=== PATIENT | male | born 1940 | race Two or more races ===

== ENCOUNTER 2024-09-22 14:38 | Outpatient (AMB) | payer MEDICARE, MEDICAID, SELFPAY ==
[2024-09-22 14:50] VITALS: BP 145/80; PULSE 106; RESP 18; TEMP 36.4; O2SAT 93; BMI 27.4
--- NOTE | 2024-09-22 14:50 | GSCOFFNT_ITS ---
[facility]ital Signs - [facility] 09/22/24 14:50 Height 1.7 m Height Method Measured Weight 79.492 kg Weight Measurement Method Standing Scale BMI 27.4 BP 145/80 H Blood Pressure Source Automatic Cuff Blood Pressure Location Right Upper Arm Position Sitting Respiration 18 Pulse 106 H Pulse Source Monitor Temp 97.5 F Temp Source Temporal Artery Scan Pulse Oximetry (%) 93 L Oxygen Delivery Method Room Air Med/Allergies Allergies & Medications Allergies No Known Allergies Allergy (Verified 09/22/24 14:51) Medication Reconciliation hydrochlorothiazide 25 mg tablet 25 mg PO QDAY 03/09/18 [History Confirmed 09/22/24] omeprazole 40 mg capsule,delayed release 40 mg PO QDAY 03/09/18 [History Confirmed 09/22/24] amlodipine 10 mg tablet 10 mg PO QDAY 09/22/24 [History Confirmed 09/22/24] glipizide 5 mg tablet 5 mg PO QDAY 09/22/24 [History Confirmed 09/22/24] metformin 850 mg tablet 850 mg PO BID 09/22/24 [History Confirmed 09/22/24] montelukast 10 mg tablet 10 mg PO QDAY 09/22/24 [History Confirmed 09/22/24] MA Intake Visit Data Collection New Patient or Established: New Patient not seen in past 3 years at [facility] (considered New) Seen by Clinical Staff ONLY (RN/MA): No Reason for Visit:: POSITIVE FOBT Pain Present Currently: Yes Pain Location: Unable to identify Pain scale:: 3 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[employer] 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: Yes PCP or OBGYN visit in last 3 months: Yes Hx Now: No Do You Feel Safe at Home: Yes Authorities Contacted: N/A Smoking Status Smoking Status: Never smoker Immunization / Flu Flu Vaccine in the Last 12 Months: No Flu Vaccine Exclusion Criteria: No Exclusion Criteria Past Medical History Past Medical History NEUROLOGIC: Negative Seizures CARDIAC: Positive Hypercholesterolemia and Hypertension; Negative Congestive Heart Failure RESPIRATORY: Positive Asthma; Negative Chronic Obstructive Pulmonary Disease (COPD), Smoking, Smoking Cessation Counseling, Smoking Exposure or Tobacco Use GASTROINTESTINAL: Positive Gastroesophageal Reflux Disease GENITOURINARY: Negative Renal Disease ENDOCRINE: Positive Diabetes Mellitus Type 2; Negative Diabetes Mellitus Type 1 OTHER HISTORY: Negative Blood Transfusions, Blood Transfusion Reaction or Anesthesia Reactions Social History SMOKING STATUS: Smoking status: Never smoker HOUSING: Housing: House Travel Risk Travel Hx Recent Travel: No HPI HPI Narrative 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 Pt reports he takes FOBTs regularly due to his history of polyps and was advised that his recent test was positive. He states he has occasional constipation but otherwise no change in stool caliber, no blood in stool, no anorexia and unintentional weight loss. He had a colonoscopy here in 2018 showing internal hemorrhoids, and believes he had one 2-3 years ago in [place] which showed polyps PMH: HTN, DM, asthma PSHx: Hernia repair Meds: No antiplt or anticoagulation Allergies: NKDA Family hx: No known malignancy ROS Review of Systems Systems Reviewed: All systems reviewed, normal except as documented Objective/Exam General General Appearance: alert, cooperative and well groomed Resp Respiratory exam: Absent respiratory distress Assessment & Plan Diagnosis / Problem List (1) Encounter for colonoscopy due to history of adenomatous colonic polyps: Status: Acute Assessment & Plan: 84M with reported history of polyps presenting with +FOBT. I explained benefits/risks of colonoscopy including bleeding, perforation and/or the need to abort prematurely for safety. All questions were answered and pt is agreeable to proceeding Advanced Care Planning Advance care planning discussed with:: other Patient Portal Questionaires Social History Living Situation History Housing: House Tobacco History Smoking Status: Never smoker Domestic Abuse History Do You Feel Safe at Home: Yes Review of Systems Report any current symptoms Only answer those that you have currently: Past Medical History Past Medical History Have you ever been diagnosed with any of the following: Neurological Problems Seizures: No Cardiology Problems Hypercholesterolemia: Yes Congestive Heart Failure: No Hypertension: Yes Respiratory Problems Chronic Obstructive Pulmonary Disease (COPD): No Asthma: Yes Smoking: No Smoking Cessation Counseling: No Smoking Exposure: No Tobacco Use: No Stomache/Intestinal Problems Gastroesophageal Reflux Disease: Yes Genital/Urinary Problems Renal Disease: No Endocrine Problems Diabetes Mellitus Type 1: No Diabetes Mellitus Type 2: Yes Other Problems Blood Transfusions: No Blood Transfusion Reaction: No Anesthesia Reactions: No Surgical History Additional Surgical History: HERNIA SX BILATERAL ANKLE SX
== END 2024-09-22 15:16 | disposition home or self-care (01) ==
PROVIDERS: PCP Family Medicine; Referring Provider Family Medicine; Supervising Provider Surgery; Visit Provider Surgery
DX: Z12.11 Encounter for screening for malignant neoplasm of colon (principal); Z86.0101 Personal history of adenomatous and serrated colon polyps
CPT/HCPCS: 99213; G0463

== ENCOUNTER 2024-11-08 07:55 | Day surgery (SDC) | payer MEDICARE, MEDICAID, SELFPAY ==
[2024-11-07 10:23] VITALS: BMI 27.4
[2024-11-08] VITALS (16 sets, daily range): BP systolic 96–132; BP diastolic 61–81; PULSE 70–102; RESP 12–26; TEMP 36.4–36.7; O2SAT 92–99; BMI 26.9
[2024-11-08] MEDS: DiphenhydrAMINE INJ 50 MG/ML VIAL 25 MG IV (09:28)
[2024-11-08] MEDS: MIDAZOLAM INJ 1 MG/ML VIAL 2 ML (ASD USE ONLY) 2 MG IV (09:28)
[2024-11-08] MEDS: RINGERS LACTATED 1000 ML 1,000 ML 100 ML IV (09:28)
[2024-11-08] MEDS: fentaNYL CIT INJ 50 mCg/ML AMP 2ML (ASD USE ONLY) IV (09:33)
== END 2024-11-08 11:05 | disposition home or self-care (01) ==
PROVIDERS: PCP Family Medicine; Referring Provider Surgery; Visit Provider Surgery
PROC: 0DBE8ZX Excision of Large Intestine, Via Natural or Artificial Opening Endoscopic, Diagnostic (ICD-10-PCS; CPT 45380; principal; 2024-11-08 10:45)
DX: Z12.11 Encounter for screening for malignant neoplasm of colon (principal); Z86.0100 Personal history of colon polyps, unspecified; D12.3 Benign neoplasm of transverse colon; D12.4 Benign neoplasm of descending colon; D12.5 Benign neoplasm of sigmoid colon; K64.8 Other hemorrhoids; I10 Essential (primary) hypertension; E11.9 Type 2 diabetes mellitus without complications; J45.909 Unspecified asthma, uncomplicated; E78.00 Pure hypercholesterolemia, unspecified; K21.9 Gastro-esophageal reflux disease without esophagitis; K64.4 Residual hemorrhoidal skin tags
CPT/HCPCS: 45385; 45380; J1200; J2250; J3010; J7120

== ENCOUNTER 2024-11-24 09:11 | Outpatient (AMB) | payer MEDICARE, MEDICAID, SELFPAY ==
--- NOTE | 2024-11-24 09:27 | GSCOFFNT_ITS ---
Vital Signs - [facility] 11/24/24 09:29 Height 1.63 m Height Method Stated Weight 72.348 kg Weight Measurement Method Standing Scale BMI 27.2 BP 118/74 Blood Pressure Source Automatic Cuff Blood Pressure Location Left Upper Arm Position Sitting Respiration 19 Pulse 89 Pulse Source Monitor Temp 98.0 F Temp Source Temporal Artery Scan Pulse Oximetry (%) 92 L Oxygen Delivery Method Room Air Med/Allergies Allergies & Medications Allergies No Known Allergies Allergy (Verified 11/24/24 09:29) Medication Reconciliation hydrochlorothiazide 25 mg tablet 25 mg PO QDAY 03/09/18 [History Confirmed 11/24/24] omeprazole 40 mg capsule,delayed release 40 mg PO QDAY 03/09/18 [History Confirmed 11/24/24] amlodipine 10 mg tablet 10 mg PO QDAY 09/22/24 [History Confirmed 11/24/24] glipizide 5 mg tablet 5 mg PO QDAY 09/22/24 [History Confirmed 11/24/24] metformin 850 mg tablet 850 mg PO BID 09/22/24 [History Confirmed 11/24/24] montelukast 10 mg tablet 10 mg PO QDAY 09/22/24 [History Confirmed 11/24/24] losartan 25 mg tablet 25 mg PO QDAY 11/08/24 [History Confirmed 11/24/24] MA Intake Visit Data Collection New Patient or Established: Established Patient (seen at [facility] within 3 years) Seen by Clinical Staff ONLY (RN/MA): No Reason for Visit:: COLONOSCOPY F/U Pain Present Currently: No 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 PCP or OBGYN visit in last 3 months: Yes Hx Now: No Do You Feel Safe at Home: Yes Authorities Contacted: N/A Smoking Status Smoking Status: Never smoker Immunization / Flu Flu Vaccine in the Last 12 Months: No Flu Vaccine Exclusion Criteria: No Exclusion Criteria Past Medical History Past Medical History NEUROLOGIC: Negative Seizures CARDIAC: Positive Cardiac Disorders, Hypercholesterolemia and Hypertension; Negative Congestive Heart Failure RESPIRATORY: Positive Asthma; Negative Chronic Obstructive Pulmonary Disease (COPD), Smoking, Smoking Cessation Counseling, Smoking Exposure or Tobacco Use GASTROINTESTINAL: Positive Gastroesophageal Reflux Disease GENITOURINARY: Negative Renal Disease ENDOCRINE: Positive Diabetes Mellitus Type 2; Negative Diabetes Mellitus Type 1 OTHER HISTORY: Negative Blood Transfusions, Blood Transfusion Reaction or Anesthesia Reactions Surgical History SURGICAL: Positive Open Reduction Internal Fixation (Bilateral ankles plates and screws) Social History SMOKING STATUS: Smoking status: Never smoker ALCOHOL: Alcohol Intake: Never HOUSING: Housing: House HPI HPI Narrative 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 Pt reports feeling well overall with no complaints ROS Review of Systems Systems Reviewed: All systems reviewed, normal except as documented Objective/Exam General General Appearance: alert, cooperative and well groomed Resp Respiratory exam: Absent respiratory distress Results Colonoscopy, pathology reports reviewed, multiple tubular adenomas <1cm Assessment & Plan Diagnosis / Problem List (1) Encounter to discuss colonoscopy results: Status: Acute Assessment & Plan: 84M with history of polyps referred for +FOBT with findings of multiple tubular adenomas <10mm. I explained that generally he would be recommended to repeat surveillance in 3 years however given his age, it is not likely to confer much benefit so I do not recommend any further surveillance. All questions were answered and pt is encouraged to reach out if any symptoms develop or with any concerns/questions Advanced Care Planning Advance care planning discussed with:: patient Office Procedures GNS Level of Care Nursing/Assessment Patient Status: Established Patient Nursing Assessment/Reassesment: Medication Reconciliation, Update PMH in EMR and Vital Signs Coordination of Care: Complex Care and Chronic Disease 1-5, Consent,records obtained, informed consent, Education Simp Pt/Fam, Results/Orders obtained and Staff clarify orders Special Needs: Language special needs Established Patient Charge Established Patient Point Assignment: 90 Established Patient Point Charge: EP Level 3 (80-115) Patient Portal Questionaires Social History Living Situation History Housing: House Tobacco History Smoking Status: Never smoker Alcohol History Alcohol Intake: Never Domestic Abuse History Do You Feel Safe at Home: Yes Review of Systems Report any current symptoms Only answer those that you have currently: Past Medical History Past Medical History Have you ever been diagnosed with any of the following: Neurological Problems Seizures: No Cardiology Problems Hypercholesterolemia: Yes Congestive Heart Failure: No Hypertension: Yes Respiratory Problems Chronic Obstructive Pulmonary Disease (COPD): No Asthma: Yes Smoking: No Smoking Cessation Counseling: No Smoking Exposure: No Tobacco Use: No Stomache/Intestinal Problems Gastroesophageal Reflux Disease: Yes Genital/Urinary Problems Renal Disease: No Endocrine Problems Diabetes Mellitus Type 1: No Diabetes Mellitus Type 2: Yes Other Problems Blood Transfusions: No Blood Transfusion Reaction: No Anesthesia Reactions: No
[2024-11-24 09:29] VITALS: BP 118/74; PULSE 89; RESP 19; TEMP 36.7; O2SAT 92; BMI 27.2
== END 2024-11-24 09:47 | disposition home or self-care (01) ==
LOC: HODSRG 09:11
PROVIDERS: PCP Family Medicine; Referring Provider Family Medicine; Supervising Provider Surgery; Visit Provider Surgery
DX: Z71.2 Person consulting for explanation of examination or test findings (principal); D12.6 Benign neoplasm of colon, unspecified
CPT/HCPCS: 99213; G0463